=== PATIENT | male | born 1995 | race Caucasian/White ===

== ENCOUNTER 2017-02-12 13:43 | Emergency (ER) | payer OTHER ==
[2017-02-12 13:54] VITALS: BP 134/73; BMI 22.1
[2017-02-12] MEDS ORDERED: TORADOL 60 MG VIAL IM ONE (16:07)
[2017-02-12] MEDS ORDERED: NORFLEX INJ IM ONE (16:07)
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
[2017-02-12] MEDS ORDERED: NORFLEX INJ ONE (16:25)
[2017-02-12] MEDS ORDERED: TORADOL 60 MG VIAL ONE (16:25)
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
[2017-02-12] MEDS ORDERED: TORADOL TAB PO ONE ×2 (16:42→16:45)
[2017-02-12] MEDS ORDERED: FLEXERIL TAB 10 MG ONE (16:42)
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
[2017-02-12] MEDS ORDERED: FLEXERIL TAB 10 MG PO ONE (16:46)
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
== END 2017-02-12 17:23 | disposition home or self-care (01) ==
LOC: ER 13:43
DX: S00.81XA Abrasion of other part of head, initial encounter (principal); S29.019A Strain of muscle and tendon of unspecified wall of thorax, initial encounter; S16.1XXA Strain of muscle, fascia and tendon at neck level, initial encounter; R51 Headache; V49.9XXA Car occupant (driver) (passenger) injured in unspecified traffic accident, initial encounter
CPT/HCPCS: 70450; 72125; 72128; 99282; 99283; J1885; J2360

== ENCOUNTER 2022-07-08 19:05 | Observation (INO) ==
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
[2022-07-08] MEDS ORDERED: NS 1,000 ML IV 1,000 ML IV ONE (19:42)
[2022-07-08] MEDS ORDERED: ZOFRAN INJ 4 MG VIAL IVP ONE (19:42)
[2022-07-08] MEDS ORDERED: PROTONIX INJ 40 MG VIAL IVP ONE (19:42)
[2022-07-08] MEDS ORDERED: PROTONIX INJ 40 MG VIAL ONE (19:50)
[2022-07-08] MEDS ORDERED: ZOFRAN INJ 4 MG VIAL ONE (19:50)
[2022-07-08] MEDS ORDERED: NS 1,000 ML IV 1,000 ML ONE (19:50)
[2022-07-08 20:04] LABS: BASOPHILS # (AUTO) 0.1 X10^3/uL (0.0-0.1); BASOPHILS % (AUTO) 1.5 % (0.2-1.0); EOSINOPHILS # (AUTO) 0.5 x10^3/uL (0.0-0.2); EOSINOPHILS % (AUTO) 4.8 % (0.9-2.9); HEMATOCRIT 40.9 % (42.0-54.0); HEMOGLOBIN 14.5 g/dL (13.5-18.0); LYMPHOCYTES # (AUTO) 1.8 X10^3/uL (1.3-2.9); LYMPHOCYTES % (AUTO) 18.5 % (21.0-51.0); MEAN CORPUSCULAR HEMOGLOBIN 30.8 pg (27.0-34.0); MEAN CORPUSCULAR HGB CONC 35.5 g/dL (33.0-35.0); MEAN CORPUSCULAR VOLUME 86.7 fL (80.0-100.0); MEAN PLATELET VOLUME 9.6 fL (7.4-11.0); MONOCYTES # (AUTO) 0.7 x10^3/uL (0.3-0.8); MONOCYTES % (AUTO) 7.3 % (0.0-13.0); NEUTROPHILS # (AUTO) 6.8 x10^3/uL (2.2-4.8); NEUTROPHILS % (AUTO) 67.9 % (42.0-75.0); PLATELET COUNT 227 X10^3/uL (150.0-450.0); RED BLOOD COUNT 4.72 X10^6/uL (4.7-6.0); RED CELL DISTRIBUTION WIDTH 12.1 % (11.6-16.5)
[2022-07-08 20:15] LABS: ALANINE AMINOTRANSFERASE 18 Units/L (12-78); ALBUMIN 3.7 g/dL (3.4-5.0); ALKALINE PHOSPHATASE 52 Units/L (46-116); AMYLASE 28 Units/L (25-115); ASPARTATE AMINO TRANSFERASE 12 Units/L (15-37); BLOOD UREA NITROGEN 6 mg/dL (7-18); CALCIUM 8.4 mg/dL (8.5-10.1); CHLORIDE 105 mmol/L (98-107); COR NA(FOR HYPERGLY) 142 mmol/L (136-145); CREATININE 0.95 mg/dL (0.70-1.30); GLUCOSE 115 mg/dL (65-99); LIPASE 71 Units/L (73-393); POTASSIUM 3.5 mmol/L (3.5-5.1); SODIUM 142 mmol/L (136-145); TOTAL PROTEIN 6.8 g/dL (6.4-8.2); eGFR NON BLACK RACES > 60 (>60)
[2022-07-08] MEDS ORDERED: ELAVIL PO SCH (21:26)
[2022-07-08] MEDS: D5 1/2 NS 1,000 ML 1,000 ML IV SCH (21:52)
[2022-07-08] MEDS: MORPHINE SULFATE INJ 4 MG IVP PRN (21:53)
[2022-07-08 23:02] LABS: BILIRUBIN,URINE NEGATIVE (NEGATIVE); BLOOD/HEMOGLOBIN,URINE NEGATIVE (NEGATIVE); GLUCOSE, URINE NEGATIVE (NEGATIVE); KETONES,URINE NEGATIVE (NEGATIVE); LEUKOCYTE ESTERASE ,URINE NEGATIVE (NEGATIVE); NITRITES,URINE NEGATIVE (NEGATIVE); PROTEIN,URINE NEGATIVE (NEGATIVE); UROBILINOGEN,URINE NORMAL (NORMAL)
[2022-07-08 23:29] LABS: APPEARANCE,URINE CLEAR (CLEAR); COLOR,URINE PALE YELLOW (YELLOW)
[2022-07-08] MEDS: ATIVAN INJ 2 MG VIAL IVP PRN (23:39)
[2022-07-09] MEDS: MORPHINE SULFATE INJ 4 MG IVP PRN ×3 (05:07→12:48)
[2022-07-09] MEDS: D5 1/2 NS 1,000 ML 1,000 ML IV SCH ×2 (05:12→12:48)
[2022-07-09] MEDS: ZOFRAN INJ 4 MG VIAL IVP PRN ×2 (05:12→11:07)
--- NOTE | 2022-07-09 05:20 | RAD ---
PROCEDURE: Acute Abdomen Series .HISTORY: Abdomen pain.TECHNIQUE: AP supine and upright abdomen with AP chest x-ray views .COMPARISON: 02/08/2022 chest x-ray.TECHNICAL QUALITY: Satisfactory .FINDINGS:Chest x-ray shows clear lungs and normal size heart.No pneumoperitoneum.Mild gas and feces in the colon without distention. No obstruction or ileus.No organomegaly.No abnormal calcifications.No bony abnormality.IMPRESSION:1. Nonspecific bowel gas pattern.2. No active cardiopulmonary disease.Electronically signed by: Jarett Kellogg (July 09, 2022 05:18:32)
[2022-07-09 08:45] VITALS: O2SAT 99
[2022-07-09] MEDS ORDERED: POTASSIUM CHLORIDE LIQ 20 MEQ UDC PO PRN (08:50)
[2022-07-09] MEDS ORDERED: POTASSIUM CHL 40 MEQ/NS 0.45% 500 ML IV PRN (08:50)
[2022-07-09] MEDS ORDERED: POTASSIUM CHL 60 MEQ/NS 0.45% 500 ML IV PRN (08:50)
[2022-07-09] MEDS ORDERED: K-DUR TAB 20 MEQ PO PRN (08:50)
[2022-07-09] MEDS ORDERED: K-RIDER 10 MEQ/NS 100 ML 10 MEQ/100 ML BAG IV PRN (08:50)
[2022-07-09] MEDS ORDERED: MICRO K EXTEN CAP 10 MEQ PO PRN (08:50)
[2022-07-09] MEDS ORDERED: KLOR-CON PO PRN (08:50)
[2022-07-09] MEDS ORDERED: PROTONIX INJ 40 MG VIAL IVP SCH (09:00)
[2022-07-09] MEDS ORDERED: DIPRIVAN VIAL 20 ML ONE ×2 (10:43→10:48)
--- NOTE | 2022-07-09 12:49 | US ---
HISTORYABD PAINSTUDYGALL BLADDERCOMPARISONNone availableTECHNIQUEMultiple cowart scale and color Doppler images of the right upper quadrant were obtained.FINDINGSThe imaged liver appears normal in echotexture without visualized focal lesion. Main portal vein is patent. The nondistended gallbladder is unremarkable without cholelithiasis, wall thickening/edema or pericholecystic fluid. The common bile duct is normal in caliber, measuring 3 mm. Right kidney measures 10 cm in length and appears normal in echogenicity without visualized focal mass or hydronephrosis. Imaged portions of the pancreas appear grossly normal.IMPRESSIONUnremarkable right upper quadrant abdominal ultrasound, as visualized.Electronically signed by: JEREMY AGUERO (July 09, 2022 12:47:35)
[2022-07-09 12:51] VITALS: BP 122/71; PULSE 69; TEMP 97.7
[2022-07-09] MEDS: ATIVAN INJ 2 MG VIAL IVP PRN (14:00)
[2022-07-09] MEDS ORDERED: STERILE WATER IRRIGATION IR ONE (14:19)
== END 2022-07-09 15:10 | disposition home or self-care (01) ==
LOC: ER 19:05 → MED/SURG 19:05
PROVIDERS: ADMIT Surgery; ATTEND Surgery
DX: F41.8 Other specified anxiety disorders; R06.02 Shortness of breath; K29.00 Acute gastritis without bleeding; M41.80 Other forms of scoliosis, site unspecified; R10.13 Epigastric pain; F32.89 Other specified depressive episodes; R53.1 Weakness; R10.84 Generalized abdominal pain; Z66 Do not resuscitate